=== PATIENT | male | born 1990 | race Caucasian/White ===

== ENCOUNTER 2018-02-02 09:16 | Emergency (ER) | payer SELFPAY ==
[~2018-02-02] VITALS: Ht 188 cm; Wt 104.3 kg
[2018-02-02] MEDS ORDERED: XANAX0.5 MG PO (09:39)
== END 2018-02-02 09:44 | disposition home or self-care (01) ==
LOC: ED 09:16
DX: M79.89 Other specified soft tissue disorders (principal)

== ENCOUNTER 2018-02-02 10:03 | Emergency (ER) | payer OTHER, BC ==
[~2018-02-02] VITALS: Ht 188 cm; Wt 104.3 kg
[~2018-02-02 10:03] MED LIST: XANAX0.5 MG PO
== END 2018-02-02 11:18 | disposition home or self-care (01) ==
LOC: ED 10:03
DX: S50.02XA Contusion of left elbow, initial encounter (principal); W01.0XXA Fall on same level from slipping, tripping and stumbling without subsequent striking against object, initial encounter; Y92.89 Other specified places as the place of occurrence of the external cause; Y99.0 Civilian activity done for income or pay
CPT/HCPCS: 73080; 99283